=== PATIENT | female | born 1950 | race Asian ===

== ENCOUNTER 2020-04-05 07:15 | Emergency (ER) | payer OTHER ==
[~2020-04-05] VITALS: Ht 162.6 cm; Wt 54.4 kg
[2020-04-05 07:27] VITALS: BP_SYST 128
--- NOTE | 2020-04-05 07:29 | NUR ---
Patient to ER bed 6 to gown for evaluation. Side rails up. Report given to Yvette MUNROE.
--- NOTE | 2020-04-05 07:31 | NUR ---
Patient arrived in the ED c/o pain on the right hip that goes down the right leg for the last 3 days. Denied any chest pain or shortness of breath. Denied any fevers, chills, nausea or vomiting. Patient is alert and oriented x4, respirations even and unlabored, speaking in full sentences, and ambulating with a steady gait. VSS, pain level 10/10. Informed of the approximate wait time. Instructed to notify ED staff for any changes in condition or worsening of symptoms. Patient verbalized understanding.
--- NOTE | 2020-04-05 07:38 | NUR ---
ER Dr. Ndiaye at bedside examining patient.
[2020-04-05 07:50] VITALS: BP_SYST 128
--- NOTE | 2020-04-05 07:50 | NUR ---
Patient given written and verbal discharge instructions and verbalizes understanding. ER MD discussed with patient the results and treatment provided. Patient in stable condition. ID arm band removed. Rx of Murphy and Motrin given. Patient educated on pain management and to follow up with PMD. Pain Scale 3/10. Opportunity for questions provided and answered. Medication side effect fact sheet provided.
== END 2020-04-05 07:50 | disposition home or self-care (01) ==
LOC: SED 07:15
DX: M54.31 Sciatica, right side (principal)
CPT/HCPCS: 99283